=== PATIENT | female | born 1990 | race American Indian/Alaskan Native ===

== ENCOUNTER 2016-05-02 13:07 | Emergency (ER) | payer OTHER ==
[2016-05-02] MEDS ORDERED: MOTRIN PO ONE (17:44)
[2016-05-02] MEDS ORDERED: BACTRIM DS PO ONE (17:45)
[2016-05-02] MEDS ORDERED: KEFLEX PO ONE (17:45)
[2016-05-02] MEDS ORDERED: XYLOCAINE 1%/ EPI 1:100,000 INFILTRATI ONE (18:16)
--- NOTE | 2016-05-02 18:26 | Emergency Department Report ---
Abscess Boil HPI - HPI Chief Complaint: Skin/Abscess/Foreign Body Stated Complaint: ABCESS ON FACE Time Seen by Provider: 05/02/16 17:18 Duration: 2 Days Location: Head Severity: Mild History: Yes Pain, Yes Previous History, No Fever, No Purulent Drainage, No Numbness, No Foreign Body HPI: 26-year-old female past medical history facial abscess approximately 6 months ago. Presents with complaint of 3-4 days of mild swelling at corner of left malar region on face. She denies any fever or chills no blurry vision no dental pain. Region approximately on to 2 cm in diameter, as per patient skin is very irritated and mildly red Home Medications: Previous Rx's Medication Instructions Recorded Last Taken Type Ibuprofen [Motrin] 600 mg PO Q8H PRN #30 tablet 07/24/14 Unknown Rx Sulfamethoxazole/Trimethoprim 1 each PO BID #14 tablet 07/24/14 Unknown Rx [Bactrim Ds] Cephalexin [Keflex] 500 mg PO BID #20 capsule 02/07/16 Unknown Rx Ibuprofen [Motrin 600 MG tab] 600 mg PO Q8H PRN #20 tablet 02/07/16 Unknown Rx Fluconazole [Diflucan] 150 mg PO QDAY #2 bottle 02/26/16 Unknown Rx Nitrofurantoin [place]/M-Cryst 100 mg PO Q12HR #10 capsule 02/26/16 Unknown Rx [Macrobid CAP] Cephalexin [Keflex] 500 mg PO Q12HR #14 cap 05/02/16 Unknown Rx Ibuprofen [Motrin] 600 mg PO Q8H PRN #25 tablet 05/02/16 Unknown Rx Sulfamethoxazole/Trimethoprim 1 each PO BID #14 tablet 05/02/16 Unknown Rx [Bactrim DS TAB] Allergies/Adverse Reactions: Allergies Allergy/AdvReac Type Severity Reaction Status Date / Time No Known Allergies Allergy Verified 02/07/16 17:55 ED Review of Systems ROS: Stated complaint: ABCESS ON FACE Other details as noted in HPI Constitutional: denies: chills, fever Eyes: as per HPI. denies: eye pain, eye discharge, vision change ENT: denies: ear pain, throat pain Respiratory: denies: cough, shortness of breath, wheezing Cardiovascular: denies: chest pain, palpitations Endocrine: no symptoms reported Gastrointestinal: denies: abdominal pain, nausea, diarrhea Genitourinary: denies: urgency, dysuria, discharge Musculoskeletal: denies: back pain, joint swelling, arthralgia Skin: as per HPI, lesions (small area of cellulitis/abscess left face below left eye region). denies: rash Neurological: denies: headache, weakness, paresthesias Psychiatric: denies: anxiety, depression Hematological/Lymphatic: denies: easy bleeding, easy bruising ED Past Medical Hx - Past Medical History Previous Medical History?: No - Surgical History Past Surgical History?: No - Social History Smoking Status: Never Smoker Substance Use Type: None - Medications Home Medications: Home Medications Medication Instructions Recorded Confirmed Last Taken Type Ibuprofen [Motrin] 600 mg PO Q8H PRN #30 tablet 07/24/14 Unknown Rx Sulfamethoxazole/Trimethoprim 1 each PO BID #14 tablet 07/24/14 Unknown Rx [Bactrim Ds] Cephalexin [Keflex] 500 mg PO BID #20 capsule 02/07/16 Unknown Rx Ibuprofen [Motrin 600 MG tab] 600 mg PO Q8H PRN #20 tablet 02/07/16 Unknown Rx Fluconazole [Diflucan] 150 mg PO QDAY #2 bottle 02/26/16 Unknown Rx Nitrofurantoin [place]/M-Cryst 100 mg PO Q12HR #10 capsule 02/26/16 Unknown Rx [Macrobid CAP] Cephalexin [Keflex] 500 mg PO Q12HR #14 cap 05/02/16 Unknown Rx Ibuprofen [Motrin] 600 mg PO Q8H PRN #25 tablet 05/02/16 Unknown Rx Sulfamethoxazole/Trimethoprim 1 each PO BID #14 tablet 05/02/16 Unknown Rx [Bactrim DS TAB] ED Abscess Boil Physical Exam - Exam General: Vital signs noted. No distress. Alert and acting appropriately. Size: 2 cm Exam: Yes Tenderness, Yes Fluctuance, Yes Surrounding Cellulites/Erythema, No Lymphangitis, No Crepitation, No Heart Murmur, No Normal Neurologic Exam, No Normal Circulation Exam: Extraocular movements intact, and 20/20 both eyes, sclera not injected, no medical concern for orbital cellulitis I & D Note - I & D Note I & D Note: Aspiration attempted area, minimal pus drainage only scant amounts aspirated area very small less than 1.5 cm, no significant cellulitis at 1.5 cm area is red. ED Course Vital Signs 05/02/16 13:10 Temperature 97.9 F Pulse Rate 57 L Respiratory 18 Rate Blood Pressure 102/60 O2 Sat by Pulse 100 Oximetry Critical care attestation.: If time is entered above; I have spent that time in minutes in the direct care of this critically ill patient, excluding procedure time. ED Medical Decision Making - Medical Decision Making A/P: Tiny left-sided facial abscess/cellulitis 1- As there are no signs of periorbital involvement I think it is reasonable to treat patient with oral antibiotics. Bactrim and Keflex BID x7 days to cover for MRSA and strep. I aspirated small pocket and only was able to aspirate scant amount less then 0.5cc., again the areas approximately 1.5 cm in diameter does not involve orbital rim and extraocular movements are intact without any pain and vision is intact. Wound culture sent. motrin prn for discomfort. Warm compresses to area. 2-48 hour wound check. I instructed patient to return to the ED [facility] for any difficulty moving her left eye, if indurated area spreads if she develops fever or chills. patient understood these instructions clearly during conversation. 3-borders of cellulitis/induration marked less than 1.5 cm in diameter ED Disposition Clinical Impression: Facial abscess Cellulitis Qualifiers: Site of cellulitis: face Qualified Code(s): L03.211 - Cellulitis of face Disposition: DISCHARGED TO HOME OR SELFCARE Is pt being admited?: No Does the pt Need Aspirin: No Condition: Stable Instructions: Cellulitis (ED), Abscess (ED) Additional Instructions: 24-48 hour wound check ED. Patient understands the importance of doing this. Prescriptions: Sulfamethoxazole/Trimethoprim [Bactrim DS TAB] 1 each PO BID #14 tablet Cephalexin [Keflex] 500 mg PO Q12HR #14 cap Ibuprofen [Motrin] 600 mg PO Q8H PRN #25 tablet PRN Reason: Pain Referrals: [facility] [Outside] - 3-5 Days PRIMARY CARE, [Primary Care Provider] - 3-5 Days Forms: Accompanied Note, Work/School Release Form(ED)
[2016-05-02] MEDS ORDERED: TRIPLE ANTIBIOTIC TP ONE (18:59)
[2016-05-02 19:09] VITALS: BP 110/68
== END 2016-05-02 19:09 | disposition home or self-care (01) ==
LOC: ED 13:07
DX: L02.01 Cutaneous abscess of face (principal); L03.211 Cellulitis of face
CPT/HCPCS: 87116